=== PATIENT | female | born 1975 | race American Indian/Alaskan Native ===

== ENCOUNTER 2017-09-23 10:01 | Outpatient (CLI) | payer OTHER ==
--- NOTE | 2017-09-23 10:55 | XRay Report ---
LUMBAR SPINE RADIOGRAPHS INDICATION: Blind or low vision. Back arthritis/degenerative disc. COMPARISON: None similar at this institution. FINDINGS: AP and lateral lumbar spine radiographs demonstrate normal vertebral body stature and alignment. Moderate to severe L5-S1 disc narrowing with vacuum phenomenon. Slight lower thoracic degenerative spurring. Intact imaged SI and hip joints. Nonobstructive bowel gas pattern. CONCLUSION: L5-S1 degenerative changes, as described. Thank you for the opportunity to participate in this patient's care.
== END 2017-09-23 10:02 | disposition home or self-care (01) ==
LOC: XRAY 10:01
PROVIDERS: ATTEND Internal Medicine
DX: M48.07 Spinal stenosis, lumbosacral region (principal); M46.06 Spinal enthesopathy, lumbar region; M47.897 Other spondylosis, lumbosacral region; M19.049 Primary osteoarthritis, unspecified hand; G43.909 Migraine, unspecified, not intractable, without status migrainosus; D64.9 Anemia, unspecified
CPT/HCPCS: 72100